=== PATIENT | female | born 1995 | race Caucasian/White ===

== ENCOUNTER 2017-07-01 09:48 | Emergency (ER) | payer OTHER ==
[~2017-07-01] VITALS: Ht 149.9 cm; Wt 46.3 kg
[2017-07-01 09:51] VITALS: Ht 149.9 cm; Wt 46.3 kg
[2017-07-01 12:09] LABS: BASOPHIL % 0.2 % (0-2); PLATELET COUNT 148 x10^3mcL (130-400); RED CELL DISTRIBUTION WIDTH 12.7 % (11.5-14.5)
[2017-07-01 12:14] LABS: CARBON DIOXIDE 25.4 mmol/L (21-32); CHLORIDE SERUM 99 mmol/L (98-107); CREATININE SERUM 0.8 mg/dL (0.6-1.0); GFR1 > 60 mL/min; GLUCOSE SERUM 95 mg/dL (74-106); POTASSIUM SERUM 3.5 mmol/L (3.5-5.1); SODIUM SERUM 137 mmol/L (136-145)
[2017-07-01 12:19] LABS: ALBUMIN 4.6 g/dL (3.4-5.0); ALKALINE PHOSPHATASE 46 U/L (46-116); ALT/SGPT 17 U/L (14-59); AST/SGOT 16 U/L (15-37); BILIRUBIN TOTAL 0.4 mg/dL (0.20-1.00)
[2017-07-01 12:20] LABS: TOTAL PROTEIN, SERUM 8.5 g/dL (6.4-8.2)
[2017-07-01 15:25] VITALS: BP 100/58
== END 2017-07-01 14:08 | disposition home or self-care (01) ==
LOC: ED 09:48
PROVIDERS: Emergency Medicine
DX: G43.909 Migraine, unspecified, not intractable, without status migrainosus (principal); R11.2 Nausea with vomiting, unspecified
CPT/HCPCS: 36415; J1885; Q0162

== ENCOUNTER 2019-01-23 11:30 | Emergency (ER) | payer BC, OTHER ==
[~2019-01-23] VITALS: Ht 149.9 cm; Wt 44.9 kg
[2019-01-23 11:43] VITALS: Ht 149.9 cm; Wt 44.9 kg
[2019-01-23 13:37] VITALS: BP 113/44
== END 2019-01-23 13:37 | disposition home or self-care (01) ==
LOC: ED 11:30
DX: S39.012A Strain of muscle, fascia and tendon of lower back, initial encounter (principal); V49.88XA Car occupant (driver) (passenger) injured in other specified transport accidents, initial encounter; Y93.I9 Activity, other involving external motion; Y92.413 State road as the place of occurrence of the external cause; Y99.8 Other external cause status

== ENCOUNTER 2019-07-18 15:18 | Emergency (ER) | payer BC, OTHER ==
[~2019-07-18] VITALS: Ht 152.4 cm; Wt 44.0 kg
[2019-07-18 15:40] VITALS: Ht 152.4 cm; Wt 44.0 kg
[2019-07-18 16:10] LABS: BASOPHIL % 0.3 % (0-2); PLATELET COUNT 157 x10^3mcL (130-400); RED CELL DISTRIBUTION WIDTH 13.5 % (11.5-14.5)
[2019-07-18 16:16] LABS: CALCIUM 9.4 mg/dL (8.5-10.1); CARBON DIOXIDE 26.2 mmol/L (21-32); CHLORIDE SERUM 106 mmol/L (98-107); CREATININE SERUM 0.7 mg/dL (0.6-1.0); GFR1 > 60 mL/min; GLUCOSE SERUM 102 mg/dL (74-106); SODIUM SERUM 142 mmol/L (136-145)
[2019-07-18 16:21] LABS: ALBUMIN 4.2 g/dL (3.4-5.0); ALKALINE PHOSPHATASE 38 U/L (46-116); ALT/SGPT 90 U/L (14-59); AST/SGOT 167 U/L (15-37); BILIRUBIN TOTAL 0.5 mg/dL (0.20-1.00); TOTAL PROTEIN, SERUM 8.1 g/dL (6.4-8.2)
[2019-07-18 21:36] VITALS: BP 94/54
== END 2019-07-18 21:30 | disposition home or self-care (01) ==
LOC: ED 15:18
PROVIDERS: Emergency Medicine
DX: K29.20 Alcoholic gastritis without bleeding (principal)
CPT/HCPCS: J2405; J3490